=== PATIENT | male | born 1955 | race Caucasian/White ===

== ENCOUNTER 2018-02-18 20:34 | Emergency (ER) | payer BC ==
[~2018-02-18] VITALS: Ht 188 cm; Wt 101.0 kg
[~2018-02-18 20:34] MED LIST: ASPI-1265 PO; BUSP30TA2 PO; CAPT12.53 PO; CARV3.122 PO; FLUT16SP2 BOTHNARES; MONT10TA21 PO; MULT1TAB74 PO; PARO40TA PO; SIMV20TA5 PO
[2018-02-18 20:42] VITALS: BP 134/71
== END 2018-02-19 00:10 | disposition home or self-care (01) ==
LOC: ER 20:34
DX: F41.9 Anxiety disorder, unspecified (principal); I10 Essential (primary) hypertension; E78.00 Pure hypercholesterolemia, unspecified; F32.9 Major depressive disorder, single episode, unspecified; Z79.82 Long term (current) use of aspirin; Z79.899 Other long term (current) drug therapy
CPT/HCPCS: 99284